=== PATIENT | male | born 1975 | race Caucasian/White ===

== ENCOUNTER 2020-04-11 13:00 | Emergency (ER) | payer OTHER ==
[2020-04-11] MEDS ORDERED: Sodium Chloride 0.9% 1,000 ML IV SCH (13:45)
--- NOTE | 2020-04-11 14:10 | EDM.PDOC ---
ED HPI GENERAL MEDICAL PROBLEM - General Chief Complaint: Neurological Problem Stated Complaint: DIZZY SPELLS, SWEATING Time Seen by Provider: 04/11/20 13:50 Source of Information: Reports: Patient, Family History Limitations: Reports: No Limitations - History of Present Illness INITIAL COMMENTS - FREE TEXT/NARRATIVE: 44-year-old male became very lightheaded, dizzy, and diaphoretic after a bowel movement at 11:30 AM, roughly 1-1/2 hours ago. Since that time he has had recurring and persistent dizziness, diaphoresis, tremor and feeling faint. No pain. No shortness of breath. This has happened to him one other time, cardiac work-up was negative. He drinks 1 alcoholic drink at least daily. He is a non- smoker. His cardiac work-up including an angiogram was negative. He started his day by spending 3 hours in bed drinking coffee and reading a book before he got up to go to the bathroom. He felt fine at that time. Onset: Sudden Duration: Hour(s): (1-1/2 hours ago) Location: Reports: Generalized - Related Data Allergies Allergy/AdvReac Type Severity Reaction Status Date / Time No Known Allergies Allergy Verified 04/11/20 13:48 Home Meds: Home Meds Citalopram [Citalopram HBr] 10 mg PO DAILY 04/11/20 [History] Loratadine [Claritin] 10 mg PO DAILY 04/11/20 [History] Past Medical History Psychiatric History: Reports: Anxiety Social & Family History - Tobacco Use Tobacco Use Status *Q: Never Tobacco User - Alcohol Use Days Per Week of Alcohol Use: 7 Number of Drinks Per Day: 1 Total Drinks Per Week: 7 - Recreational Drug Use Recreational Drug Use: No ED ROS GENERAL - Review of Systems Review Of Systems: See Below Constitutional: Reports: Malaise. Denies: Fever, Chills HEENT: Reports: Other (Mild photophobia). Denies: Throat Pain, Vision Change Respiratory: Denies: Shortness of Breath Cardiovascular: Reports: Palpitations GI/Abdominal: Reports: Nausea. Denies: Abdominal Pain, Vomiting Skin: Reports: Diaphoresis Neurological: Reports: Dizziness, Weakness Psychiatric: Reports: Anxiety ED EXAM, GENERAL - Physical Exam Exam: See Below Exam Limited By: No Limitations General Appearance: Alert, Anxious, Mild Distress, Other (Hyperventilating, very diaphoretic and anxious) Eye Exam: Bilateral Eye: Normal Inspection Head: Atraumatic Neck: Supple, Non-Tender Respiratory/Chest: No Respiratory Distress, Lungs Clear Cardiovascular: Regular Rate, Rhythm, Bradycardia GI/Abdominal: Soft, Non-Tender Extremities: Normal Inspection Neurological: Alert, Oriented, No Motor/Sensory Deficits, Slow to Respond Psychiatric: Anxious Skin Exam: Cool, Diaphoretic, Pallor Course - Vital Signs Last Recorded V/S: Last Vital Signs Temp 96.4 F L 04/11/20 13:48 Pulse 56 L 04/11/20 13:48 Resp 16 04/11/20 13:48 BP 119/79 04/11/20 13:48 Pulse Ox 99 04/11/20 13:48 - Orders/Labs/Meds Orders: Active Orders 24 hr Category Date Time Status EKG 12 Lead [EK] Routine Ther 04/11/20 13:33 Ordered Labs: Laboratory Tests 04/11/20 04/11/20 04/11/20 Range/Units 13:49 13:49 14:46 WBC 10.0 (4.5-11.0) K/uL RBC 4.26 L (4.30-5.90) M/uL Hgb 13.2 (12.0-15.0) g/dL Hct 40.3 (40.0-54.0) % MCV 95 (80-98) fL MCH 31 (27-31) pg MCHC 33 (32-36) % Plt Count 353 (150-400) K/uL Neut % (Auto) 67 H (36-66) % Lymph % (Auto) 23 L (24-44) % Appling % (Auto) 7 H (2-6) % Eos % (Auto) 4 (2-4) % Baso % (Auto) 0 (0-1) % Sodium 139 L (140-148) mmol/L Potassium 3.9 (3.6-5.2) mmol/L Chloride 103 (100-108) mmol/L Carbon Dioxide 30 (21-32) mmol/L Anion Gap 9.9 (5.0-14.0) mmol/L BUN 17 (7-18) mg/dL Creatinine 1.0 (0.8-1.3) mg/dL Est Cr Clr Drug Dosing 94.27 mL/min Estimated GFR (MDRD) > 60 (>60) Glucose 128 H (74-106) mg/dL Lactic Acid 1.4 (0.4-2.0) mmol/L Calcium 9.0 (8.5-10.1) mg/dL Troponin I (0.000-0.056) ng/mL 04/11/20 Range/Units 14:46 WBC (4.5-11.0) K/uL RBC (4.30-5.90) M/uL Hgb (12.0-15.0) g/dL Hct (40.0-54.0) % MCV (80-98) fL MCH (27-31) pg MCHC (32-36) % Plt Count (150-400) K/uL Neut % (Auto) (36-66) % Lymph % (Auto) (24-44) % Appling % (Auto) (2-6) % Eos % (Auto) (2-4) % Baso % (Auto) (0-1) % Sodium (140-148) mmol/L Potassium (3.6-5.2) mmol/L Chloride (100-108) mmol/L Carbon Dioxide (21-32) mmol/L Anion Gap (5.0-14.0) mmol/L BUN (7-18) mg/dL Creatinine (0.8-1.3) mg/dL Est Cr Clr Drug Dosing mL/min Estimated GFR (MDRD) (>60) Glucose (74-106) mg/dL Lactic Acid (0.4-2.0) mmol/L Calcium (8.5-10.1) mg/dL Troponin I < 0.017 (0.000-0.056) ng/mL Meds: Medications Discontinued Medications Generic Name Dose Route Start Last Admin Trade Name Freq PRN Reason Stop Dose Admin Sodium Chloride 1,000 mls @ 1,000 mls/hr 04/11/20 13:45 04/11/20 13:49 Normal Saline IV 1,000 mls/hr ASDIRECTED [facility] Administration - Re-Assessments/Exams Free Text/Narrative Re-Assessment/Exam: 04/11/20 15:30 Patient was initially bradycardic, very diaphoretic but not hypotensive. He re mained bradycardic for an hour but slowly normalized. CBC was normal, BMP was reassuring, troponin and lactic acid were negative. 04/11/20 15:57 After 1 L fluid and 2 hours in the emergency room, patient's bradycardia resolved and his symptoms resolved. He was able to ambulate in the emergency room without difficulty. He was diagnosed with vasovagal near syncope. Departure - Departure Time of Disposition: 16:19 Disposition: Home, Self-Care 01 Clinical Impression: Vasovagal near-syncope - Discharge Information Instructions: Near-Syncope, [id number] Referrals: PCP,None [Primary Care Provider] - Forms: ED Department Discharge Care Plan Goals: Stay hydrated, increase activity as tolerated and continue any regular medications. Consider rechecking when home, or return anytime if worsening or concerns. Sepsis Event Note (ED) - Evaluation Sepsis Screening Result: No Definite Risk - Focused Exam Vital Signs: Vital Signs Temp Pulse Resp BP Pulse Ox 04/11/20 13:48 96.4 F L 56 L 16 119/79 99 04/11/20 13:35 96.4 F L 56 L 16 119/79 99 - My Orders Last 24 Hours: My Active Orders 04/11/20 13:33 EKG 12 Lead [EK] Routine - Assessment/Plan Last 24 Hours: My Active Orders 04/11/20 13:33 EKG 12 Lead [EK] Routine
== END 2020-04-11 16:19 | disposition home or self-care (01) ==
LOC: JP.ED 13:00
DX: R55 Syncope and collapse (principal); R00.1 Bradycardia, unspecified; R00.2 Palpitations; F41.9 Anxiety disorder, unspecified; H53.149 Visual discomfort, unspecified; Z79.899 Other long term (current) drug therapy
CPT/HCPCS: 36415; 80048; 83605; 84484; 85025; 93005; 99284; J7030

== ENCOUNTER 2024-12-02 11:24 | Emergency (ER) | payer OTHER ==
[2024-12-02] MEDS: Lidocaine/Epineph/Tetracaine 3 ML Syringe TOP ONE (12:10)
== END 2024-12-02 13:59 | disposition home or self-care (01) ==
LOC: JP.ED 11:24
DX: S61.211A Laceration without foreign body of left index finger without damage to nail, initial encounter (principal); S61.213A Laceration without foreign body of left middle finger without damage to nail, initial encounter; Z79.899 Other long term (current) drug therapy; W31.2XXA Contact with powered woodworking and forming machines, initial encounter; Y93.89 Activity, other specified
CPT/HCPCS: 12002; 99282; A9270